=== PATIENT | female | born 1970 | race Two or more races ===

== ENCOUNTER 2019-08-06 06:00 | Day surgery (SDC) | payer OTHER ==
[~2019-08-06 06:00] MED LIST: ADVIL200 MG PO
[2019-08-06] MEDS ORDERED: MACROBID 100 M100 MG PO (08:50)
[2019-08-06] MEDS ORDERED: ULTRACET PO (08:50)
== END 2019-08-06 14:15 | disposition home or self-care (01) ==
LOC: CIR.AMB 06:00
PROVIDERS: ATTEND Obstetrics & Gynecology Gynecology
DX: N81.11 Cystocele, midline (principal); N81.5 Vaginal enterocele; N99.3 Prolapse of vaginal vault after hysterectomy